=== PATIENT | female | born 1995 | race Caucasian/White ===

== ENCOUNTER 2016-04-25 18:53 | Emergency (ER) | payer BC ==
--- NOTE | 2016-04-25 20:44 | ER Document Report ---
Addendum entered and electronically signed by DANIELE THOMAS NP 04/25/16 21:25: Provider Note Provider Note: discussed with Dr Hankins. pt not tachycardic or hypoxic. recommends D Dimer and bilat venous dopplers before further imaging. Original Note: ED Medical Screen (RME) - General Chief Complaint: Shortness Of Breath Stated Complaint: SHORTNESS OF BREATH Notes: 20 yo G1 8 wk gestation c/o shortness of breath x 2 days. + FERREIRA. + dizziness. + recent 13h road trip, followed by flight from [place] to [place] 04/19. + fatigue. no chest pain. TRAVEL OUTSIDE OF THE [place] IN LAST 30 DAYS: No - Related Data Allergies/Adverse Reactions: No Known Allergies Allergy (Unverified 04/06/16 10:15) Past Medical History - Social History Chew tobacco use (# tins/day): No Frequency of alcohol use: None Drug Abuse: None Past Surgical History: Reports: Hx Appendectomy, Hx Orthopedic Surgery - rt leg , Hx Tonsillectomy - Immunizations Hx Diphtheria, Pertussis, Tetanus Vaccination: Yes
[2016-04-25] MEDS ORDERED: ALBUTEROL SULFATE 0.083% NEB 2.5 MG/3 ML AMPUL NEB ONE (21:00)
[2016-04-25 23:14] LABS: ADD ON TESTING BLD IN LAB ACKNOWLEDGE
[2016-04-25] MEDS ORDERED: PREDNISONE 20 MG TABLET PO ONE (23:22)
[2016-04-25] MEDS ORDERED: ALBUTEROL SULFATE HFA (90 MCG/PUFF) 8 GM MDI (1 MDI/ER DISP) IH PRN (23:22)
[2016-04-25 23:27] LABS: HEMATOCRIT 40.3 % (36.0-47.0); HEMOGLOBIN 13.8 g/dL (12.0-15.5); HGB HCT DIFFERENCE 1.1; MEAN CORPUSCULAR HGB CONC 34.4 g/dL (32.0-36.0); MEAN CORPUSCULAR VOLUME 90 fl (80-97); RED BLOOD COUNT 4.46 10^6/uL (3.72-5.28); RED CELL DISTRIBUTION WIDTH 12.9 % (11.5-14.0); WHITE BLOOD COUNT 13.5 10^3/uL (4.0-10.5)
[2016-04-25] MEDS ORDERED: ONDANSETRON 4 MG TAB.RAPDIS ONE (23:29)
[2016-04-25 23:32] LABS: ANION GAP 14 (5-19); BLOOD UREA NITROGEN 7 mg/dL (7-20); CALCIUM 10.4 mg/dL (8.4-10.2); CARBON DIOXIDE 21 mmol/L (22-30); CHLORIDE 105 mmol/L (98-107); CREATININE RESULT 0.61 mg/dL (0.52-1.25); GLUCOSE 115 mg/dL (75-110); POTASSIUM 4.6 mmol/L (3.6-5.0); SODIUM 140.4 mmol/L (137-145)
--- NOTE | 2016-04-26 00:17 | ER Document Report ---
ED General - General Chief Complaint: Shortness Of Breath Stated Complaint: SHORTNESS OF BREATH Notes: Patient is a 20-year-old female without past medical history, currently 8 weeks who is remote history of asthma who presents with 3 days of intermittent sensation of shortness of breath. States that this is worsened by exertion. Denies any associated pain, hemoptysis, lightheadedness or syncope. She has not seen her primary care physician regarding today's concerns. Nothing improves her symptoms other than resting. Denies any DVT or pulmonary embolus. Denies a history of similar symptoms in the past. TRAVEL OUTSIDE OF THE [place] IN LAST 30 DAYS: No - HPI Onset: Other - 3 days ago Onset/Duration: Gradual Quality of pain: No pain Severity: None Pain Level: Denies Associated symptoms: Shortness of breath Exacerbated by: Movement, Walking Relieved by: Denies Similar symptoms previously: No Recently seen / treated by doctor: No - Related Data Allergies/Adverse Reactions: fentanyl Allergy (Verified 04/25/16 23:59) Past Medical History - General Information source: Patient - Social History Smoking Status: Never Smoker Chew tobacco use (# tins/day): No Frequency of alcohol use: None Drug Abuse: None Lives with: Spouse/Significant other Family History: Reviewed & Not Pertinent Patient has suicidal ideation: No Patient has homicidal ideation: No Past Surgical History: Reports: Hx Appendectomy, Hx Orthopedic Surgery - rt leg , Hx Tonsillectomy - Immunizations Hx Diphtheria, Pertussis, Tetanus Vaccination: Yes Review of Systems - Review of Systems Notes: Constitutional: Negative for fever. HENT: Negative for sore throat. Eyes: Negative for visual changes. Cardiovascular: Negative for chest pain. Respiratory: Positive for shortness of breath. Gastrointestinal: Negative for abdominal pain, vomiting or diarrhea. Genitourinary: Negative for dysuria. Musculoskeletal: Negative for back pain. Skin: Negative for rash. Neurological: Negative for headaches, weakness or numbness. 10 point ROS negative except as marked above and in HPI. Physical Exam - Vital signs Vitals: Pulse Resp Pulse Ox 93 32 H 100 04/25/16 21:51 04/25/16 21:51 04/25/16 21:51 Triage respiratory rate is inaccurate, patient at some mild assessment had no respiratory distress, respirations 18 even and unlabored Interpretation: Normal Notes: PHYSICAL EXAMINATION: GENERAL: Well-appearing, well-nourished and in no acute distress. HEAD: Atraumatic, normocephalic. EYES: Pupils equal round and reactive to light, extraocular movements intact, sclera anicteric, conjunctiva are normal. ENT: nares patent, oropharynx clear without exudates. Moist mucous membranes. NECK: Normal range of motion, supple without lymphadenopathy LUNGS: Breath sounds clear to auscultation bilaterally and equal. No wheezes rales or rhonchi. HEART: Regular rate and rhythm without murmurs ABDOMEN: Soft, nontender, normoactive bowel sounds. No guarding, no rebound. No masses appreciated. EXTREMITIES: Normal range of motion, no pitting or edema. No cyanosis. NEUROLOGICAL: No focal neurological deficits. Moves all extremities spontaneously and on command. PSYCH: Normal mood, normal affect. SKIN: Warm, Dry, normal turgor, no rashes or lesions noted. Course - Re-evaluation Re-evalutation: 04/26/16 04:50 Presentation of shortness of breath and otherwise very well-appearing 20-year- old a week patient. D-dimer is negative and venous Doppler study negative for acute DVT. Her clinical history is likewise not consistent with acute pulmonary embolus given the intermittent nature of her report shortness of breath. No tachycardia at time of arrival. During examination, patient was noted to have an episode of shortness of breath after being asked to take multiple deep breaths on exam. I was able to terminate her episode of shortness of breath by redirecting her attention to her studies and plans for her future. Likewise, staff noticed that while ambulating the patient on pulse ox she maintained saturations between 98-100% but appeared to have random periods of deep heavy breathing that did not appear consistent with actual respiratory distress. Her chest x-ray likewise unremarkable for acute pathology. EKG is unremarkable. A bedside echocardiograms without evidence of RV dilation, pericardial effusion, and appropriate contractility. At this time I do not suspect an acute pulmonary embolus, myocarditis, pericarditis, ACS, severe anemia, or any other acute life-threatening pathology.At this time will discharge with return precautions and follow-up recommendations. Verbal discharge instructions given a the bedside and opportunity for questions given. Medication warnings reviewed. Patient is in agreement with this plan and has verbalized understanding of return precautions and the need for primary care follow-up in the next 24-72 hours. - Vital Signs Vital signs: Temp Pulse Resp BP Pulse Ox 98.6 F 74 18 122/86 H 95 04/26/16 00:45 04/26/16 00:45 04/26/16 00:45 04/26/16 00:45 04/26/16 00:45 - Laboratory Result Diagrams: 04/25/16 21:05 04/25/16 21:05 Laboratory results interpreted by me: 04/25/16 04/25/16 21:05 21:05 WBC 13.5 H Carbon Dioxide 21 L Glucose 115 H Calcium 10.4 H - Diagnostic Test Radiology reviewed: Image reviewed, Reports reviewed Radiology results interpreted by me: 04/26/16 04:50 Chest x-ray: No acute infiltrate or pneumothorax - EKG Interpretation by Me Additional EKG results interpreted by me: 04/26/16 00:17 Normal sinus rhythm. Rate 84. No ST elevations or depressions. QTC 497. Discharge - Discharge Clinical Impression: Shortness of breath Condition: Good Disposition: HOME, SELF-CARE Additional Instructions: The exact cause of your feelings of shortness of breath is unclear but may be related to mild asthma. All of your testing here today does not suggest a clot in your legs, your lungs, or any direct issues with your heart based on bedside ultrasound and EKG. Your chest x-ray is also normal. I encouraged you to follow-up with your primary care physician in the next 1 to 2 days for continued evaluation. Please return to the emergency department immediately if you pass out, began coughing blood, worsening shortness of breath, chest pain, fever greater than 100.4, or any other symptoms that are concerning to you. Prescriptions: Prednisone [Deltasone 20 mg Tablet] 3 tab PO DAILY 5 Days
[2016-04-26 01:14] VITALS: BP 122/86
--- NOTE | 2016-04-26 07:59 | XCELERA REPORT ---
[address] [address] Lower Extremity Venous Evaluation Name: FLORA LUGO Age: 20 yrs Gender: Female : 1995 Patient Status: Emergency Patient Location: ER Study Date: 04/25/2016 10:47 PM Procedure: Color flow and duplex imaging bilaterally of the veins of the lower extremities as well as the Common Femoral veins. Reason For Study: shortness of breath, recent travel Ordering Physician: DANIELE THOMAS Performed By: Jeanie Hart Right Sided Venous Evaluation Normal vessel filling wall to wall, compression and augmentation as well as Colour flow down to the infrageniculate veins. Left Sided Venous Evaluation Normal vessel filling wall to wall, compression and augmentation as well as Colour flow down to the infrageniculate veins. Critical Findings Called in to the ER. Interpretation Summary No duplex evidence of DVT or obstruction in the bilateral lower extremities. : DANIELE THOMAS > Gaurav Sabillon
--- NOTE | 2016-04-26 08:01 | EKG REPORT ---
SEVERITY:- ABNORMAL ECG - ATRIAL FIBRILLATION, V-RATE 67-94 PROLONGED QT INTERVAL : Confirmed by: Omid Edwards 26-Apr-2016 08:00:42
== END 2016-04-26 01:15 | disposition home or self-care (01) ==
LOC: ER 18:53
DX: O26.91 Pregnancy related conditions, unspecified, first trimester (principal); R06.02 Shortness of breath; Z3A.08 8 weeks gestation of pregnancy
CPT/HCPCS: 93005; 94640; 99285; 36415; 85027; 80048; 85379; 93970 ×2; 71020; 93010; S0119; J7512; J3490